=== PATIENT | female | born 1970 | race African-American/Black ===

== ENCOUNTER 2017-09-16 11:49 | Emergency (ER) | payer OTHER ==
[2017-09-16 12:19] VITALS: PULSE 60; TEMP 98.2; BMI 32.3
--- NOTE | 2017-09-16 13:42 | PDOC ---
History of Present Illness - General History Source: Patient Exam Limitations: No Limitations - History of Present Illness Initial Comments: 09/16/17 14:30 The patient is a 47 year old female with no significant past medical history who presents to the ED with 4 days of flank pain and chest pain. The patient reports a gradual onset of intermittent right sided flank pain that radiates to her epigastric region on Wednesday. Patient states her epigastric pain lasts 5 minutes before residing and is worsened with positional movement and after eating. Patient also reports substernal nonexertional chest pain that she describes as a burning like sensation. She states her chest pain is intermittent and nonradiating. Denies fever or chills. Denies shortness of breath. Denies nausea, vomiting, or diarrhea. Denies any other symptoms. <Sarah Linton - Last Filed: 09/16/17 14:30> <Bandar Craig - Last Filed: 09/16/17 15:54> - General Chief Complaint: Chest Pain Stated Complaint: CHEST PAIN Time Seen by Provider: 09/16/17 13:17 Past History <Sarah Linton - Last Filed: 09/16/17 14:30> - Past Medical History COPD: No DVT: No Dementia: No - Immunization History Immunization Up to Date: Yes - Suicide/Smoking/Psychosocial Hx Smoking Status: No Smoking History: Never smoked Number of Cigarettes Smoked Daily: 0 Hx Alcohol Use: No Drug/Substance Use Hx: No Substance Use Type: None <Bandar Craig - Last Filed: 09/16/17 15:54> - Past Medical History Allergies/Adverse Reactions: Allergies Allergy/AdvReac Type Severity Reaction Status Date / Time No Known Allergies Allergy Verified 09/16/17 12:15 Home Medications: Ambulatory Orders NK [No Known Home Medication] 09/16/17 Review of Systems - Review of Systems Constitutional: No: Chills, Fever Respiratory: No: Shortness of Breath Cardiac (ROS): No: Chest Pain ABD/GI: Yes: See HPI. No: Diarrhea, Nausea, Vomiting : Yes: Flank Pain. No: Dysuria, Frequency, Hematuria Musculoskeletal: No: Back Pain All Other Systems: Reviewed and Negative <Bandar Craig - Last Filed: 09/16/17 15:54> *Physical Exam - Vital Signs Last Vital Signs Temp Pulse Resp BP Pulse Ox 98.2 F 60 17 130/94 100 09/16/17 12:16 09/16/17 12:16 09/16/17 12:16 09/16/17 12:16 09/16/17 12:16 - Physical Exam Comments: 09/16/17 14:31 GENERAL: The patient is seated in stretcher, awake, alert, and fully oriented, in no acute distress. HEAD: Normal with no signs of trauma. ENT: Moist mucous membranes. NECK: Normal range of motion, supple without lymphadenopathy, JVD, or masses. LUNGS: Breath sounds equal, clear to auscultation bilaterally. No wheeze/ crackles. HEART: Regular rate and rhythm, normal S1 and S2 without murmur or rub. ABDOMEN: + right upper quadrant discomfort to palpation. Soft/nondistended. BS wnl. No guarding or rebound. No palpable masses. No hepatosplenomegaly. No CVA tenderness. EXTREMITIES: Normal range of motion, no edema. No clubbing or cyanosis. No cords, erythema, or tenderness. NEUROLOGICAL: Cranial nerves II through XII grossly intact. Normal speech, normal gait. PSYCH: Normal mood, normal affect. SKIN: Warm, Dry, normal turgor, no rashes or lesions noted. <Sarah Linton - Last Filed: 09/16/17 14:30> - Vital Signs Last Vital Signs Temp Pulse Resp BP Pulse Ox 98.2 F 60 17 130/94 100 09/16/17 12:16 09/16/17 12:16 09/16/17 12:16 09/16/17 12:16 09/16/17 12:16 <Bandar Craig - Last Filed: 09/16/17 15:54> Heart Score/ECG Review #1 ECG reviewed & interpreted by me at: 12:23 General ECG Interpretation: Sinus Rhythm, Normal Rate (60), Normal Intervals ( qtc 402), No acute ischemic changes (isolated Q V2) <Bandar Craig - Last Filed: 09/16/17 15:54> ED Treatment Course - LABORATORY CBC & Chemistry Diagram: 09/16/17 14:30 09/16/17 14:30 <Bandar Craig - Last Filed: 09/16/17 15:54> Medical Decision Making - Medical Decision Making 09/16/17 14:26 A portion of this note was documented by scribe services under my direction. I have reviewed the details of the note, within reason, and agree with the documentation with the following case summary and management plan written by me. 47-year-old female with no significant past medical history other than heartburn presents with intermittent right upper quadrant pain for 4 days, worse with meals and positional changes, not associated with exertion or any cardiopulmonary complaints. No nausea or vomiting, no diarrhea or constipation, no urinary complaints. Had endoscopy several years ago that was within normal limits, only consistent with gastritis. Had stress test several years ago that was unremarkable. At baseline, has unlimited exercise tolerance. Vital signs normal. Well-appearing. Right upper quadrant discomfort to palpation without guarding or rebound, cardiopulmonary exam is normal 47-year-old female with intermittent right upper quadrant discomfort for 4 days , no cardiopulmonary complaints. Presentation seems consistent with GI etiology , question biliary colic versus gastritis, rule out pancreatitis. Less likely urinary etiology, not consistent with cardiac etiology. Labs, urinalysis EKG, chest x-ray Right upper quadrant ultrasound Reassess 09/16/17 15:43 No leukocytosis, labs within normal limits including LFTs and lipase, urinalysis with 2+ blood but only 2 red blood cells. Ultrasound pending, but bedside sono shows normal gallbladder, punctate ? renal pelvic stone. Will check CTAP to r/o renal colic, reassess. Signout given to oncoming ED physician to f/u results and dispo accordingly. <Bandar Craig - Last Filed: 09/16/17 15:54> *DC/Admit/Observation/Transfer - Attestations Scribe Attestion: 09/16/17 14:31 Documentation prepared by Sarah Linton, acting as lpn or medical assistant for Bandar Craig MD <Sarah Linton - Last Filed: 09/16/17 14:30> <Bandar Craig - Last Filed: 09/16/17 15:54> Diagnosis at time of Disposition: Right upper quadrant abdominal pain - Discharge Dispostion Condition at time of disposition: Stable
[2017-09-16] MEDS ORDERED: SODIUM CHLORIDE 1,000 ML IV ONE (14:03)
[2017-09-16 14:33] LABS: URINE APPEARANCE CLEAR; URINE BILIRUBIN NEGATIVE (NEGATIVE); URINE BLOOD 2+ (NEGATIVE); URINE COLOR YELLOW; URINE GLUCOSE (UA) NEGATIVE (NEGATIVE); URINE KETONE NEGATIVE (NEGATIVE); URINE LEUK ESTERASE NEGATIVE (NEGATIVE); URINE NITRITE NEGATIVE (NEGATIVE); URINE PROTEIN NEGATIVE (NEGATIVE); URINE UROBILINOGEN NEGATIVE mg/dL (0.2-1.0)
[2017-09-16 14:45] LABS: EPI CELLS RARE /HPF (FEW); URINE MUCUS RARE
[2017-09-16 14:47] LABS: BASO % 0.5 % (0-2.0); EOS % 4.5 % (0-4.5); HEMATOCRIT 40.3 % (32.4-45.2); HEMOGLOBIN 12.9 GM/dL (10.7-15.3); LYMPH % 33.8 % (8-40); MEAN PLT VOLUME 10.2 fl (7.5-11.1); MONO % 9.3 % (3.8-10.2); NEUT % 51.9 % (42.8-82.8); PLATELET COUNT 220 K/MM3 (134-434); RBC 5.16 M/mm3 (3.60-5.2); RDW 16.4 % (11.6-15.6); WHITE BLOOD COUNT 5.8 K/mm3 (4.0-10.0)
--- NOTE | 2017-09-16 14:56 | EKG ---
Test Reason : Blood Pressure : / mmHG Vent. Rate : 060 BPM Atrial Rate : 060 BPM P-R Int : 168 ms QRS Dur : 078 ms QT Int : 402 ms P-R-T Axes : 022 051 026 degrees QTc Int : 402 ms NORMAL SINUS RHYTHM SEPTAL INFARCT , AGE UNDETERMINED ABNORMAL ECG WHEN COMPARED WITH ECG OF 17-NOV-2011 13:24, SEPTAL INFARCT IS NOW PRESENT Confirmed by JUAN MALDONADO, EMILIANO ([id number]) on 09/16/2017 2:56:26 PM Referred By: Confirmed By:EMILIANO MARTINEZ MD
[2017-09-16 15:16] LABS: ALBUMIN 3.7 g/dl (3.4-5.0); ANION GAP 9 (8-16); BILIRUBIN,TOTAL 0.6 mg/dL (0.2-1.0); BLOOD UREA NITROGEN 9 mg/dL (7-18); CALCIUM 8.5 mg/dL (8.5-10.1); CHLORIDE 105 mmol/L (98-107); CO2 28 mmol/L (21-32); CREATININE 0.8 mg/dL (0.55-1.02); GLUCOSE,RANDOM 74 mg/dL (74-106); SGPT/ALT 18 U/L (12-78); SODIUM 142 mmol/L (136-145); TOT PROT 8.8 g/dl (6.4-8.2)
[2017-09-16 15:19] LABS: ALK PHOS 60 U/L (45-117)
[2017-09-16 15:20] LABS: LIPASE 232 U/L (73-393); MAGNESIUM 2.1 mg/dL (1.8-2.4); POTASSIUM 4.2 mmol/L (3.5-5.1)
[2017-09-16 15:21] LABS: SGOT/AST 28 U/L (15-37)
--- NOTE | 2017-09-16 17:05 | PDOC ---
*Physical Exam - Vital Signs Last Vital Signs Temp Pulse Resp BP Pulse Ox 98.2 F 60 17 130/94 100 09/16/17 12:16 09/16/17 12:16 09/16/17 12:16 09/16/17 12:16 09/16/17 12:16 - Physical Exam Comments: 09/16/17 17:03 Gen: aaox3, nad heart: +s1s2 reg Lungs: cta b/l abd: soft, mild R cva ttp, negative murphys, no ttp mcburneys point, R flank ttp ext: no c/c/e ED Treatment Course - LABORATORY CBC & Chemistry Diagram: 09/16/17 14:30 09/16/17 14:30 - ADDITIONAL ORDERS Additional order review: Laboratory Results 09/16/17 09/16/17 14:30 14:15 Sodium 142 Potassium 4.2 Chloride 105 Carbon Dioxide 28 Anion Gap 9 BUN 9 Creatinine 0.8 Creat Clearance w eGFR > 60 Random Glucose 74 Calcium 8.5 Magnesium 2.1 Total Bilirubin 0.6 D AST 28 ALT 18 Alkaline Phosphatase 60 Creatine Kinase 117 Troponin I < 0.02 Total Protein 8.8 H Albumin 3.7 Lipase 232 Urine Color Yellow Urine Appearance Clear Urine pH 6.0 Ur Specific [place] 1.016 Urine Protein Negative Urine Glucose (UA) Negative Urine Ketones Negative Urine Blood 2+ H Urine Nitrite Negative Urine Bilirubin Negative Urine Urobilinogen Negative Ur Leukocyte Esterase Negative Urine WBC (Auto) <1 Urine RBC (Auto) 2 Ur Epithelial Cells Rare Urine Mucus Rare 09/16/17 14:30 RBC 5.16 MCV 78.0 L MCHC 32.0 RDW 16.4 H D MPV 10.2 Neutrophils % 51.9 Lymphocytes % 33.8 Monocytes % 9.3 Eosinophils % 4.5 Basophils % 0.5 - Medications Given in the ED: ED Medications Discontinued Medications Generic Name Dose Route Start Last Admin Trade Name Freq PRN Reason Stop Dose Admin Sodium Chloride 1,000 mls @ 1,000 mls/hr 09/16/17 14:03 09/16/17 14:20 Normal Saline - IV 09/16/17 15:02 1,000 mls/hr ONCE ONE Administration Medical Decision Making - Medical Decision Making 09/16/17 17:05 a/p: pt signed out pending CT abd/pelvis blood in urine pt resting comfortably will monitor and reassess 09/16/17 17:32 pt without any pain discussed ct results microscopic blood in the urine no signs of kidney stones or acute pathology on the CT scan discuss labs and discussed need for follow up with PMD and a urologist as an outpt 09/16/17 17:33 answered all questions *DC/Admit/Observation/Transfer Diagnosis at time of Disposition: Right upper quadrant abdominal pain, Hematuria, microscopic - Discharge Dispostion Disposition: HOME Condition at time of disposition: Stable Admit: No - Referrals Referrals: Vladimir Wu MD [Staff Physician] - - Patient Instructions Printed Discharge Instructions: DI for Hematuria, DI for Flank Pain Additional Instructions: Please have your PMD repeat your urinalysis in 1 week for further eval of microscopic hematuria. Please make an appointment to see the urologist. Please return to the ED with any further complaints. - Post Discharge Activity
[2017-09-16 17:44] VITALS: BP 128/61
== END 2017-09-16 17:44 | disposition home or self-care (01) ==
LOC: JER 11:49
PROC: 3E0337Z Introduction of Electrolytic and Water Balance Substance into Peripheral Vein, Percutaneous Approach (ICD-10-PCS; principal; 2017-09-16)
DX: R10.11 Right upper quadrant pain (principal); R31.29 Other microscopic hematuria
CPT/HCPCS: 36415; 71046-TC; 74176-TC; 76705-TC; 80053; 81003; 81015; 82550; 83690; 83735; 84484; 85025; 93005; 93010; 99283-25

== ENCOUNTER 2018-09-06 13:41 | Emergency (ER) | payer OTHER ==
--- NOTE | 2018-09-06 14:02 | PDOC ---
Rapid Medical Evaluation Medical Evaluation: Allergies Allergy/AdvReac Type Severity Reaction Status Date / Time No Known Allergies Allergy Verified 09/06/18 13:58 I have performed a brief in-person evaluation of this patient. The patient presents with a chief complaint of: C/O RUQ pain from last week; denies f/n/v/d/urinary complaints; last BM last night; hx of fibroid removal Pertinent physical exam findings: In NAD, abdomen soft, ND, NT I have ordered the following: Lab The patient will proceed to the ED for further evaluation. 09/06/18 13:58
[2018-09-06 14:04] VITALS: TEMP 97.8; BMI 31.4
[2018-09-06 14:25] LABS: BASO % 0.3 % (0-2.0); EOS % 4.2 % (0-4.5); HEMATOCRIT 40.1 % (32.4-45.2); LYMPH % 33.1 % (8-40); MCH 26.6 pg (25.7-33.7); MCHC 32.3 g/dl (32.0-36.0); MEAN CELL VOLUME 82.2 fl (80-96); MEAN PLT VOLUME 10.5 fl (7.5-11.1); MONO % 9.3 % (3.8-10.2); NEUT % 53.1 % (42.8-82.8); PLATELET COUNT 178 K/MM3 (134-434); RBC 4.88 M/mm3 (3.60-5.2); RDW 13.6 % (11.6-15.6); WHITE BLOOD COUNT 5.4 K/mm3 (4.0-10.0)
[2018-09-06 14:30] LABS: URINE APPEARANCE CLEAR; URINE BILIRUBIN NEGATIVE (<2.0 mg/dL); URINE COLOR LTYELLOW; URINE GLUCOSE (UA) NEGATIVE (NEGATIVE); URINE KETONE NEGATIVE (NEGATIVE); URINE LEUK ESTERASE NEGATIVE (NEGATIVE); URINE NITRITE NEGATIVE (NEGATIVE); URINE PROTEIN NEGATIVE (NEGATIVE); URINE UROBILINOGEN NEGATIVE mg/dL (0.2-1.0)
[2018-09-06 14:31] LABS: HCG,QUALITATIVE URINE Negative
[2018-09-06 15:00] LABS: ALBUMIN 3.6 g/dl (3.4-5.0); ALK PHOS 59 U/L (45-117); ANION GAP 5 MMOL/L (8-16); BILIRUBIN,TOTAL 0.6 mg/dL (0.2-1); BLOOD UREA NITROGEN 11 mg/dL (7-18); CALCIUM 8.5 mg/dL (8.5-10.1); CHLORIDE 108 mmol/L (98-107); CO2 27 mmol/L (21-32); CREATININE 0.9 mg/dL (0.55-1.3); GLUCOSE,RANDOM 79 mg/dL (74-106); POTASSIUM 3.8 mmol/L (3.5-5.1); SGOT/AST 18 U/L (15-37); SGPT/ALT 18 U/L (13-61); SODIUM 140 mmol/L (136-145); TOT PROT 7.6 g/dl (6.4-8.2)
--- NOTE | 2018-09-06 16:07 | PDOC ---
History of Present Illness - General Chief Complaint: Pain Stated Complaint: ABD PAIN Time Seen by Provider: 09/06/18 16:07 History Source: Patient Exam Limitations: No Limitations - History of Present Illness Initial Comments: 09/06/18 18:47 CHIEF COMPLAINT: Right side pain HISTORY OF PRESENT ILLNESS: This is an otherwise healthy 48-year-old female who presents for evaluation of one week of intermittent pain under the right breast. She denies any associated fevers/chills, shortness of breath, nausea/ vomiting, or any other symptoms. She reports that she had a similar episode roughly 1 year ago and worse worked up here (CT abdomen and chest x-ray at that time were negative). She has not tried any medications for the pain. She reports that the pain does seem to be worse with movement and deep breathing. She does not have any pain at the time of this encounter. Respiratory rate on my exam is 18. Smoking: None Alcohol: None Drugs: None REVIEW OF SYSTEMS: GENERAL/CONSTITUTIONAL: No fever or chills. No weakness. No weight change. HEAD, EYES, EARS, NOSE AND THROAT: No change in vision. No ear pain or discharge. No sore throat. CARDIOVASCULAR: No chest pain or palpitations. RESPIRATORY: No cough, wheezing, or shortness of breath. GASTROINTESTINAL: No nausea, vomiting, diarrhea or constipation. GENITOURINARY: No dysuria, frequency, or change in urination. MUSCULOSKELETAL: See HPI. SKIN: No rash or easy bruising. NEUROLOGIC: No headache, vertigo, loss of consciousness, or loss of sensation. PSYCHIATRIC: No depression or anxiety. ENDOCRINE: No increased thirst. No abnormal weight change. HEMATOLOGIC/LYMPHATIC: No anemia, easy bleeding, or history of blood clots. ALLERGIC/IMMUNOLOGIC: No hives or skin allergy. No latex allergy. PHYSICAL EXAM: GENERAL: The patient is awake, alert, and fully oriented, in no acute distress. HEAD: Normal with no signs of trauma. ENT: Pupils equal, round and reactive to light, extraocular movements intact, sclera anicteric, conjunctiva clear. Neck supple. LUNGS: Clear to auscultation bilaterally. Normal excursion. No respiratory distress or use of accessory muscles. CV: RRR, S1/S2, no MRG. Cap refill < 2 sec. ABDOMEN: Soft, non-distended, non-tender. EXTREMITIES: Normal range of motion, no edema. NEUROLOGICAL: Normal speech, normal gait. CN II-XII grossly intact. PSYCH: Normal mood, normal affect. SKIN: Warm, dry, normal turgor, no rashes or lesions noted. Past History - Past Medical History Allergies/Adverse Reactions: Allergies Allergy/AdvReac Type Severity Reaction Status Date / Time No Known Allergies Allergy Verified 09/06/18 13:58 Home Medications: Ambulatory Orders NK [No Known Home Medication] 09/16/17 COPD: No DVT: No Dementia: No - Immunization History Immunization Up to Date: Yes - Suicide/Smoking/Psychosocial Hx Smoking Status: No Smoking History: Never smoked Number of Cigarettes Smoked Daily: 0 Hx Alcohol Use: No Drug/Substance Use Hx: No Substance Use Type: None *Physical Exam - Vital Signs Last Vital Signs Temp Pulse Resp BP Pulse Ox 97.8 F 70 22 H 121/78 100 09/06/18 13:58 09/06/18 13:58 09/06/18 13:58 09/06/18 13:58 09/06/18 13:58 Moderate Sedation - Procedure Monitoring Vital Signs: Procedure Monitoring Vital Signs Temperature 97.8 F 09/06/18 13:58 Pulse Rate 70 09/06/18 13:58 Respiratory Rate 22 H 09/06/18 13:58 Blood Pressure 121/78 09/06/18 13:58 O2 Sat by Pulse Oximetry (%) 100 09/06/18 13:58 ED Treatment Course - LABORATORY CBC & Chemistry Diagram: 09/06/18 14:14 09/06/18 14:13 - ADDITIONAL ORDERS Additional order review: Laboratory Results 09/06/18 09/06/18 14:13 14:00 Sodium 140 Potassium 3.8 Chloride 108 H Carbon Dioxide 27 Anion Gap 5 L BUN 11 Creatinine 0.9 Creat Clearance w eGFR > 60 Random Glucose 79 Calcium 8.5 Total Bilirubin 0.6 AST 18 ALT 18 Alkaline Phosphatase 59 Total Protein 7.6 Albumin 3.6 Urine Color Ltyellow Urine Appearance Clear Urine pH 6.0 Ur Specific [place] 1.015 Urine Protein Negative Urine Glucose (UA) Negative Urine Ketones Negative Urine Blood Negative Urine Nitrite Negative Urine Bilirubin Negative Urine Urobilinogen Negative Ur Leukocyte Esterase Negative Urine HCG, Qual Negative 09/06/18 14:14 RBC 4.88 MCV 82.2 MCHC 32.3 RDW 13.6 D MPV 10.5 Neutrophils % 53.1 Lymphocytes % 33.1 Monocytes % 9.3 Eosinophils % 4.2 Basophils % 0.3 Medical Decision Making - Medical Decision Making 09/06/18 19:09 A/P: Healthy 48-year-old female with 1 week of intermittent pain in right upper quadrant/under right breast. Differential includes but is not limited to: Costochondritis, cholelithiasis/cholecystitis, musculoskeletal pain. 1. EKG 2. Chest x-ray 3. Gallbladder ultrasound 4. Labs sent from our and be including CBC, CMP, UA reviewed and unremarkable 5. Patient is not in pain at this time and declines analgesia Chest x-ray: No acute pathology. Patient signed out to MATT Felix to follow up results of gallbladder ultrasound, EKG.
--- NOTE | 2018-09-06 19:47 | PDOC ---
*Physical Exam - Vital Signs Last Vital Signs Temp Pulse Resp BP Pulse Ox 97.8 F 70 22 H 121/78 100 09/06/18 13:58 09/06/18 13:58 09/06/18 13:58 09/06/18 13:58 09/06/18 13:58 - Physical Exam General Appearance: Yes: Appropriately Dressed. No: Apparent Distress HEENT: positive: Normal ENT Inspection Respiratory/Chest: positive: Lungs Clear, Normal Breath Sounds. negative: Chest Tender, Respiratory Distress, Accessory Muscle Use Cardiovascular: positive: Regular Rhythm, S1, S2, Bradycardia. negative: Edema , Murmur Gastrointestinal/Abdominal: positive: Normal Bowel Sounds, Soft. negative: Tender Musculoskeletal: positive: Normal Inspection. negative: CVA Tenderness ED Treatment Course - LABORATORY CBC & Chemistry Diagram: 09/06/18 14:14 09/06/18 14:13 - ADDITIONAL ORDERS Additional order review: Laboratory Results 09/06/18 09/06/18 14:13 14:00 Sodium 140 Potassium 3.8 Chloride 108 H Carbon Dioxide 27 Anion Gap 5 L BUN 11 Creatinine 0.9 Creat Clearance w eGFR > 60 Random Glucose 79 Calcium 8.5 Total Bilirubin 0.6 AST 18 ALT 18 Alkaline Phosphatase 59 Total Protein 7.6 Albumin 3.6 Urine Color Ltyellow Urine Appearance Clear Urine pH 6.0 Ur Specific [place] 1.015 Urine Protein Negative Urine Glucose (UA) Negative Urine Ketones Negative Urine Blood Negative Urine Nitrite Negative Urine Bilirubin Negative Urine Urobilinogen Negative Ur Leukocyte Esterase Negative Urine HCG, Qual Negative 09/06/18 14:14 RBC 4.88 MCV 82.2 MCHC 32.3 RDW 13.6 D MPV 10.5 Neutrophils % 53.1 Lymphocytes % 33.1 Monocytes % 9.3 Eosinophils % 4.2 Basophils % 0.3 Progress Note - Progress Note Progress Note: Received signout from nurse practitioner Ritika. Briefly this is a 48-year-old woman presents for evaluation of 1 week of right upper quadrant/rib pain. Patient had negative workup done in August 2017 for similar complaint. Laboratory testing performed is unremarkable. Chest x-ray as read by Dr. Steiner: No acute chest pathology. Patient is pending read of ultrasound now for disposition. Medical Decision Making - Medical Decision Making 09/06/18 19:47 Ultrasound as read by Dr. Peña: Negative exam. No definite sonographic abnormality is identified. There is been no definite interval change in comparison to a prior ultrasound exam of 09/16/2017. 09/06/18 20:20 EKG is sinus rhythm with rate of 59. Normal intervals noted. No ischemic changes present. I will discharge the patient home to follow-up with her primary doctor. I discussed the physical exam findings, ancillary test results and final diagnoses with the patient. I answered all of the patient's questions. The patient was satisfied with the care received and felt comfortable with the discharge plan and treatment plan. The patient will call their primary care physician within 24 hours to arrange follow-up and will return to the Emergency Department with any new, persistent or worsening symptoms. *DC/Admit/Observation/Transfer Diagnosis at time of Disposition: Right upper quadrant abdominal pain - Discharge Dispostion Disposition: HOME Condition at time of disposition: Fair Decision to Admit order: No - Referrals Referrals: Yonny Benitez MD [Staff Physician] - - Patient Instructions Additional Instructions: Eat a bland diet. Start by eating bananas, rice, applesauce and toast. You may add more flavorful and spicy foods and short able to tolerate. Make an appointment with her primary doctor for reevaluation. Return to emergency department for worsening pain, shortness of breath, nausea, vomiting, dizziness, chest pain or any other concerns. Thank you very much for choosing us to provide your emergent health care needs. - Post Discharge Activity
[2018-09-06 20:29] VITALS: BP 120/68; PULSE 72
--- NOTE | 2018-09-07 09:55 | EKG ---
Test Reason : Blood Pressure : / mmHG Vent. Rate : 059 BPM Atrial Rate : 059 BPM P-R Int : 170 ms QRS Dur : 074 ms QT Int : 412 ms P-R-T Axes : 036 056 030 degrees QTc Int : 407 ms SINUS BRADYCARDIA OTHERWISE NORMAL ECG WHEN COMPARED WITH ECG OF 16-SEP-2017 12:23, CRITERIA FOR SEPTAL INFARCT ARE NO LONGER PRESENT Confirmed by JUANITA MALDONADO, CAROLINA ([id number]) on 09/07/2018 9:55:45 AM Referred By: Confirmed By:CAROLINA GARNT MD
== END 2018-09-06 20:29 | disposition home or self-care (01) ==
LOC: JER 13:41
DX: R10.11 Right upper quadrant pain (principal)
CPT/HCPCS: 36415; 71046-TC-FY; 76705-TC; 80053; 81003; 84703; 85025; 93005; 93010; 99282-25